=== PATIENT | female | born 1960 | race Caucasian/White ===

== ENCOUNTER 2022-09-19 09:26 | Outpatient (CLI) | payer BC, SELFPAY | END 2022-09-19 09:27 | disposition home or self-care (01) | LOC: INJ CL 09:27 | PROVIDERS: PCP Physician Assistant; Visit Provider Family Medicine | DX: M25.551 Pain in right hip (principal); M16.11 Unilateral primary osteoarthritis, right hip | CPT/HCPCS: 20610; 77002; J0702; Q9966 ==

== ENCOUNTER 2022-12-25 07:19 | Outpatient (RCR) | payer BC, SELFPAY | END 2023-03-09 11:00 | disposition home or self-care (01) | PROVIDERS: PCP Physician Assistant; Visit Provider Orthopaedic Surgery | DX: M16.11 Unilateral primary osteoarthritis, right hip (principal); Z96.641 Presence of right artificial hip joint; M25.651 Stiffness of right hip, not elsewhere classified; M25.551 Pain in right hip; R26.89 Other abnormalities of gait and mobility; Z74.09 Other reduced mobility; Z51.89 Encounter for other specified aftercare | CPT/HCPCS: 97161 ==

== ENCOUNTER 2023-01-07 11:54 | Outpatient (CLI) | payer BC, SELFPAY | END 2023-01-07 11:55 | disposition home or self-care (01) | PROVIDERS: PCP Physician Assistant; Visit Provider Emergency Medicine | DX: Z01.83 Encounter for blood typing (principal) | CPT/HCPCS: 36415; 86850; 86900; 86901 ==

== ENCOUNTER 2023-01-09 06:02 | Day surgery (SDC) | payer BC, SELFPAY ==
[2023-01-09] VITALS (25 sets, daily range): BP systolic 104–163; BP diastolic 53–92; PULSE 71–96; RESP 14–18; TEMP 36.4–37; O2SAT 90–100; BMI 40.7
[2023-01-09] MEDS: LACTATED RINGERS 1000 ML 1,000 ML 100 ML IV ×2 (06:30→09:21)
[2023-01-09] MEDS: CELECOXIB 200 MG CAPSULE PO (06:51)
[2023-01-09] MEDS: ACETAMINOPHEN 500 MG TABLET 1000 MG PO ×3 (06:51→17:15)
[2023-01-09] MEDS: SODIUM CHLORIDE 0.9 % (FLUSH) 10 ML SYRINGE IVF (06:52)
[2023-01-09] MEDS: OXYCODONE (CR) 10 MG TAB.ER.12H PO (06:52)
--- NOTE | 2023-01-09 07:06 | SUR.PREOP ---
TIME?OUT:?0714 PT/RN/MDA?VERIFICATION?OF?SURGICAL?SITE Right Hip,?PROCEDURE Nerve Block,?AND?CONSENT OBTAINED?PRIOR?TO?INVASIVE?PROCEDURE.
[2023-01-09] MEDS: MIDAZOLAM HCL 1 MG/ML inj IVP (07:14)
[2023-01-09] MEDS: fentaNYL 100 MCG/2 ML inj IVP (07:14)
[2023-01-09] MEDS: CEFAZOLIN 2 GM INJ IVP (07:45)
--- NOTE | 2023-01-09 07:45 | CRLHL7_ITS ---
For Patients: As a result of the Cures Act, medical imaging exams and procedure reports are released immediately into your electronic medical record. You may view this report before your referring provider. If you have questions, please contact your health care provider. Indication: Hip replacement surgery Technique: AP hip fluoroscopic images. Fluoroscopy time 65.2 seconds. Findings/Impression: Hardware from a right total hip arthroplasty is in satisfactory position. Dictated by Carl Turner MD @ 01/09/2023 1:26:05 PM (Electronically Signed)
[2023-01-09] MEDS: TRANEXAMIC ACID 100 MG/ML INJ 1000 MG IV (07:50)
--- NOTE | 2023-01-09 08:18 | W.ANESCHARGE ---
Anesthesia Charges Start Date/Time Anesthesia Start Date: 01/09/23 Anesthesia Start Time: 07:37 Stop Date/Time Anesthesia Stop Date: 01/09/23 Anesthesia Stop Time: 10:20
--- NOTE | 2023-01-09 09:07 | W.PM.NB ---
Nerve Block Nerve Block Time Seen by Provider: 07:18 Date Seen: 01/09/23 Type of block requested by surgeon for post-operative analgesia: RUPERT/LFCN Side: right Time out performed: Yes Verification of patient name: Yes Verification of date of : Yes Site marking: site marked Name of person performing procedure: Justin Continuous monitoring Was continuous monitoring of O2 sat, B/P, cardiac cath lab radiology technologist, recorded every 15 minutes?: Yes Procedure Checklist: sterile prep, needles and gloves Ultrasound guided. Images saved: Yes Medications given in 5ml increments after negative aspiration: Ropivicaine %: 0.5 mL: 30 Needle gauge: 20 Decadron (mg): 10 Precedex (mcg): 25 Patient tolerated procedure well: Yes Additional comments: Needle noted below psoas tendon needle noted adjacent to LFCN Block Charges Block Charge (with Pro Fee): Other Periph Nerve Block Use of Ultrasound Machine for Block: Yes- US Guidance/pain block
--- NOTE | 2023-01-09 09:07 | W.ANESCHARGE ---
Anesthesia Charges Start Date/Time Anesthesia Start Date: 01/09/23 Anesthesia Start Time: 07:37 Stop Date/Time Anesthesia Stop Date: 01/09/23 Anesthesia Stop Time: 10:20
--- NOTE | 2023-01-09 09:29 | CRLHL7_ITS ---
For Patients: As a result of the Cures Act, medical imaging exams and procedure reports are released immediately into your electronic medical record. You may view this report before your referring provider. If you have questions, please contact your health care provider. Indication: Postop DAVE Technique: AP hip centered pelvis and lateral view right hip Findings/Impression: Hardware from a right total hip arthroplasty is in satisfactory position. Bone alignment is normal. No sign of acute fracture. Postop changes are within normal limits. Dictated by Carl Turner MD @ 01/09/2023 1:21:04 PM (Electronically Signed)
--- NOTE | 2023-01-09 09:30 | PM.ORPRC ---
Procedure Note Date of procedure: 01/09/23 Procedure: PREOPERATIVE DIAGNOSIS: Right hip osteoarthritis POSTOPERATIVE DIAGNOSIS: Right hip osteoarthritis NAME OF OPERATION: Right total hip arthroplasty SURGEON: Lonnie Chery MD BEE RANCHER: Selina Calderon PA-C, MICHELLE Calvillo IMPLANTS: 1. [employer] [place] # 52 sector ingrowth cup 2. 36 x 52 +4 neutral polyethylene 3. Actis # 5 high offset collared ingrowth stem 4. 36 + 1.5 ceramic femoral head ANESTHESIA: General ESTIMATED BLOOD LOSS: 600 cc COMPLICATIONS: None SPECIMENS: None DRAINS: None PREOPERATIVE ANTIBIOTICS: Ancef 2 grams INDICATIONS: The patient is a 62-year-old with a longstanding history of severe, unrelenting right hip pain secondary to end-stage right hip osteoarthritis. Despite appropriate nonoperative management, including activity modification, use of an assist device, anti-inflammatories, [id number] pain medication, physical therapy and injections, they continue to have pain and disability. Operative intervention was offered. The risks, benefits and expected outcomes were discussed in detail. These included but were not limited to: Infection, bleeding, injury to blood vessel or nerve, venous thromboembolism. All questions were answered to their satisfaction. Use of an customer service assistant was necessary throughout the case for patient positioning and safety, soft tissue retraction and closure. A modifier 22 should be added to this case. The patient's weight of 111 kg with a BMI of 40.8 kg/meter squared made the exposure difficult. This added significant time to complete the case. PROCEDURE: The patient was placed supine on the Hutchins table. General anesthesia was administered. The customer service assistant made sure the patient was properly positioned. The right hip was prepped and draped in the usual sterile fashion. The image intensifier was brought in for a perfect AP pelvis and a perfect double tear drop AP view of each hip which were used for intraoperative templating with our fluoroscopic guide. An oblique incision was made 3 cm distal and 3 cm lateral to the anterior superior iliac spine. The customer service assistant retracted the soft tissues to protect them. Subcutaneous dissection was taken with electrocautery to the superficial fascia. The fascia was divided in line with the incision. Blunt dissection was carried medially to the tensor fascia estefania and sartorius interval. Deep dissection was carried with electrocautery. The circumflex vessels were cauterized and divided. The capsule was exposed and then divided in a T-fashion, tagged with #1 Ethibond sutures. Retractors were placed in the joint, held by the customer service assistant. The corkscrew was placed in the femoral head. The neck cut was made in the subcapital region. We made a second neck cut more distal. The napkin ring of bone was removed. The femoral head was removed intact. Acetabular retractors were placed, held by the customer service assistant. The labrum was sharply debrided. The capsule was released. The 43 mm reamer was used to the true medial wall. We then enlarged in 2 mm increments using the image intensifier for our reamer placement. We impacted the cup which had excellent purchase. We placed the hole eliminator and the polyethylene. Attention was then turned to the proximal femur. The limb was placed in 140 degrees of external rotation, maximum extension and adduction. A significant amount of time was spent releasing the capsule to allow us to deliver the femur into the wound and complete the femoral side safely. Retractors were held by the customer service assistant throughout the femoral preparation. The slip box changer and canal finder were used. Broaches were used to a stable size. The calcar reamer was used. Trial components were placed. The hip was reduced and was found to be stable with appropriate soft tissue tension. Length and offset had been nicely restored using the image intensifier and our fluoroscopic guide. Trial components were removed. The stem was impacted. We placed the femoral head. Again, the hip was reduced and was found to be stable with appropriate soft tissue tension. Length and offset had been nicely restored. The customer service assistant did a three minute dilute Betadine solution soak. The customer service assistant irrigated the wound with 3 liters of normal saline via pulse lavage. The customer service assistant repaired the anterior capsule with a #1 Vicryl and our previously placed Ethibond sutures. The customer service assistant closed the fascia over the tensor fascia estefania with a #1 PDO Stratafix, subcutaneous tissues with 2-0 Vicryl, skin with a running 3-0 Stratafix and glue. A dry dressing was applied by the customer service assistant. Sponge and needle counts were correct x 2. The patient tolerated the procedure well; there were no apparent complications. They were awakened and extubated in the operating room, sent to the Post-Anesthesia Care Unit in satisfactory condition. PLAN: 1. The patient will be mobilized with physical therapy, weight-bearing as tolerates 2. Xarelto x 35 days will be used for DVT prophylaxis 3. The patient will be discharged once medically appropriate
[2023-01-09] MEDS: HYDROmorphone 0.5 mg/0.5 ml inj IVP (10:45)
[2023-01-09] MEDS: LACTATED RINGERS 1000 ML 1,000 ML 75 ML IV (11:19)
[2023-01-09] MEDS: OXYCODONE 5 MG TABLET PO ×2 (12:52→21:21)
[2023-01-09] MEDS: CEFAZOLIN 2 GM in 0.9 % SODIUM CHLORIDE Mini-bag 100 ML IVPB ×2 (15:49→23:05)
--- NOTE | 2023-01-09 16:09 | PC.NURSE ---
Shift Summary :Patient pleasant and cooperative, up with PT to chair one assist, walker and gait belt. Tolerating regular diet, pain managed with PRN medication. Dressing over hip clean, dry and intact. Vitals stable and WNL, ow sat >90% on RA. Ice pack over right hip. Patient alert and oriented, using call light appropriately.
--- NOTE | 2023-01-09 16:37 | P.IMCN_ITS ---
Date of Consult Patient: Raquel Patient Consult date: 01/09/23 Requesting Physician: Orthopedics Primary Care Provider: ZEN Saini-Josselyn Consult Narrative Reason for consult: Postoperative care HTN, peripheral neuropathy, anxiety/depression Narrative: Rebecca Clark is a 62 year old woman with end-stage right Carlin arthrosis undergoes elective right total hip arthroplasty today with Dr. Lonnie Chery, [facility], [place], [place], with estimated blood loss of 600 mL. No apparent rika or postoperative complications. Doing well. Pain well c ontrolled at this time. Review of Systems Status of ROS: Reports: 10 or more systems reviewed and unremarkable except as noted in History and below Narrative: I reviewed the preoperative consultation she had with her primary care aide, ZEN Patton, dated 12/26/2022. Patient was deemed low risk for perioperative complications. History of bilateral lower extremity varicose veins for which she had vein stripping roughly 8-10 years ago. Did develop postoperative deep venous thrombosis of the left femoral vein at that time for which she was treated with anticoagulation appropriately. Has had multiple surgeries prior to and since that time including knee bilateral total knee replacements in 2004, revision of the right total knee replacement in September of 2021, without deep venous thrombosis or other complications. Denies angina, anginal equivalent, syncope, near syncope, nausea, vomiting, cough, dyspnea, edema, palpitations. Does not have a history of asthma or COPD. Does have a history of reactive airways disease which occasionally occurs in the fall of the year. Does not take bronchodilators or beta agonists for her respiratory status except for rarely, as needed, per her clinician oncology. 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 Over the past couple years the right hip pain has become gradually increasingly apparent. Is gradually becoming increasingly more difficult for her to bear weight, transfer, walk. [facility] Medical History (Updated 01/09/23 @ 17:00 by Taco Orona MD) Controlled substance agreement signed ?Z79.899 - Other care home (current) drug therapy (ICD-10) Left femoral vein DVT ?I82.412 - Acute embolism and thrombosis of left femoral vein (ICD-10) GERD (gastroesophageal reflux disease) ?K21.9 - Gastro-esophageal reflux disease without esophagitis (ICD-10) Generalized anxiety disorder ?F41.1 - Generalized anxiety disorder (ICD-10) Major depressive disorder, recurrent episode ?F33.9 - Major depressive disorder, recurrent, unspecified (ICD-10) HTN (hypertension) ?I10 - Essential (primary) hypertension (ICD-10) DVT (deep venous thrombosis) ?I82.409 - Acute embolism and thrombosis of unspecified deep veins of unspecified lower extremity (ICD-10) Right knee pain ?M25.561 - Pain in right knee (ICD-10) Surgical History History of total knee arthroplasty ?Z96.659 - Presence of unspecified artificial knee joint (ICD-10) History of revision of total knee arthroplasty ?Z96.659 - Presence of unspecified artificial knee joint (ICD-10) S/P KIANNA (total abdominal hysterectomy) ?Z90.710 - Acquired absence of both cervix and uterus (ICD-10) History of revision of total replacement of right knee joint (10/03/21) ?Z96.651 - Presence of right artificial knee joint (ICD-10) S/P right knee arthroscopy (05/09/05) ?Z98.890 - Other specified postprocedural states (ICD-10) H/O vein stripping ?Z98.890 - Other specified postprocedural states (ICD-10) H/O: hysterectomy ?Z90.710 - Acquired absence of both cervix and uterus (ICD-10) Status post total bilateral knee replacement (~2006) ?Z96.653 - Presence of artificial knee joint, bilateral (ICD-10) Family History Mother Lung cancer Father Anxiety disorder COPD (chronic obstructive pulmonary disease) Sister Breast cancer Social History Narrative: -Dereje What is your current living situation?: I presently have a place to live In the past 12 months, utilities in danger of being shut off: no In past 12 months, lack of transportation kept you from medical appts, meetings, work, or getting things needed for daily living: no In the past 12 mos, have been you worried that your food would run out before you had money to buy more?: never true In the past 12 mos, the food you bought just didn't last and you didn't have money to buy more?: never true Smoking Status: Never smoker Do you use any of these nicotine containing products: None Second hand tobacco smoke exposure: No How often do you have a drink containing alcohol: never AUDIT-C Alcohol total score: 0 Non-prescribed substance use: denies use Caffeine: No How often does anyone, including family, friends and others, physically hurt you : never How often does anyone, including family, friends and others, insult or talk down to you: never How often does anyone, including family, friends and others, threaten you with harm: never How often does anyone, including family, friends and others, scream or curse at you: never Meds Home Medications and Allergies Home Medications Medication Instructions Recorded Confirmed Type bupropion HCl 150 mg 24 hr tablet, 150 mg PO QAM 10/04/22 01/09/23 History extended release buspirone 15 mg tablet 15 mg PO TID 10/04/22 01/09/23 History celecoxib 200 mg capsule 200 mg PO BID 10/04/22 01/09/23 History clindamycin HCl 150 mg capsule 600 mg PO ONCE PRN 10/04/22 01/09/23 History escitalopram oxalate 20 mg tablet 20 mg PO DAILY 10/04/22 01/09/23 History famotidine 40 mg tablet 40 mg PO DAILY 10/04/22 01/09/23 History fluticasone 250 mcg-salmeterol 50 1 inh inhalation BID 10/04/22 01/09/23 History mcg/dose blistr powdr for inhalation (Advair Diskus) fluticasone propionate 50 2 spray intranasal DAILY 10/04/22 01/09/23 History mcg/actuation nasal spray,suspension lisinopril 20 1 tab PO DAILY 10/04/22 01/09/23 History mg-hydrochlorothiazide 25 mg tablet potassium chloride 20 mEq 20 meq PO DAILY 10/04/22 01/09/23 History tablet,extended release(part/cryst) pregabalin 100 mg capsule 100 mg PO BID 10/04/22 01/09/23 History triamcinolone acetonide 0.1 % 1 applic topical BID PRN 10/04/22 01/09/23 History topical ointment albuterol sulfate 90 mcg/actuation 2 inh inhalation Q6H PRN 01/09/23 01/09/23 History aerosol inhaler multivitamin (Daily Multi-Vitamin 1 tab PO DAILY 01/09/23 01/09/23 History tablet) Allergies Allergy/AdvReac Type Severity Reaction Status Date / Time Penicillins AdvReac Hives Verified 01/09/23 06:35 topiramate AdvReac itching Verified 01/09/23 06:35 Exam Narrative: Exam Narrative: Examined patient in her hospital room. Appears comfortable in no acute distress. Vision and hearing are grossly normal. Alert and oriented to self, place, time, situation. Friendly, articulate, cooperative. Hoarse voice status post general anesthesia. Pupils equally round and reactive to light and accommodation, extraocular muscles are intact, conjugate vision. No icterus or conjunctival injection. Midline nasal septum. Dentition in good repair. Midline trachea. Neck is supple. No head or neck lymphadenopathy. Lungs are clear to auscultation without wheezing, rhonchi, or rales. Chest wall excursions are full with respiratory efforts. Heart tones with regular rhythm, normal S1-S2, without murmur, gallop, or rub. PMI not laterally displaced. No focal motor neurologic deficits. As already been able to move about the room with help from physical therapy. Const: Vital Signs, click to edit/add: Vital Signs - 24 hr 01/09/23 06:39 01/09/23 07:14 01/09/23 07:20 Temperature 97.8 F Pulse Rate 73 72 71 Pulse Rate [Pulse Oximeter] Respiratory Rate 16 16 16 Blood Pressure 126/61 125/53 L 109/58 L Blood Pressure [Le ft Arm] Pulse Oximetry 96 100 100 Oxygen Delivery Me thod Room Air Nasal Cannula Nasal Cannula Oxygen Flow Rate 2 2 01/09/23 10:19 01/09/23 10:25 01/09/23 10:30 Temperature 97.7 F Pulse Rate 75 76 77 Pulse Rate [Pulse Oximeter] Respiratory Rate 16 14 16 Blood Pressure 158/78 H 146/83 H 140/92 H Blood Pressure [Le ft Arm] Pulse Oximetry 96 95 95 Oxygen Delivery Me thod Room Air Oxygen Flow Rate 01/09/23 10:35 01/09/23 10:40 01/09/23 10:45 Temperature 97.8 F Pulse Rate 77 81 81 Pulse Rate [Pulse Oximeter] Respiratory Rate 14 16 16 Blood Pressure 163/87 H 156/89 H 144/78 H Blood Pressure [Le ft Arm] Pulse Oximetry 94 93 94 Oxygen Delivery Me thod Room Air Oxygen Flow Rate 01/09/23 10:50 01/09/23 10:55 01/09/23 11:00 Temperature Pulse Rate 76 80 79 Pulse Rate [Pulse Oximeter] Respiratory Rate 16 16 16 Blood Pressure 139/78 140/77 H 135/77 Blood Pressure [Le ft Arm] Pulse Oximetry 97 97 97 Oxygen Delivery Me thod Room Air Room Air Room Air Oxygen Flow Rate 01/09/23 11:14 01/09/23 11:30 01/09/23 11:45 Temperature 97.5 F L 97.5 F L 97.7 F Pulse Rate 74 Pulse Rate [Pulse Oximeter] 80 83 Respiratory Rate 16 16 16 Blood Pressure Blood Pressure [Le ft Arm] 138/79 140/82 H 133/64 Pulse Oximetry 93 94 Oxygen Delivery Me thod Room Air Room Air Room Air Oxygen Flow Rate 01/09/23 12:00 01/09/23 12:30 01/09/23 13:00 Temperature 97.7 F 97.6 F 97.6 F Pulse Rate Pulse Rate [Pulse Oximeter] 76 93 91 Respiratory Rate 18 16 16 Blood Pressure Blood Pressure [Le ft Arm] 137/79 114/89 114/66 Pulse Oximetry 95 96 94 Oxygen Delivery Me thod Room Air Room Air Room Air Oxygen Flow Rate 01/09/23 13:30 01/09/23 14:00 01/09/23 15:00 Temperature 97.7 F Pulse Rate Pulse Rate [Pulse Oximeter] 88 85 91 Respiratory Rate 18 18 18 Blood Pressure Blood Pressure [Le ft Arm] 104/64 121/81 Pulse Oximetry 95 96 Oxygen Delivery Me thod Room Air Room Air Oxygen Flow Rate 01/09/23 15:00 01/09/23 16:00 Temperature 98.4 F Pulse Rate Pulse Rate [Pulse Oximeter] 91 89 Respiratory Rate 18 18 Blood Pressure Blood Pressure [Le ft Arm] 124/78 144/78 H Pulse Oximetry 97 96 Oxygen Delivery Me thod Room Air Room Air Oxygen Flow Rate Assessment and Plan Assessment and plan (1) Osteoarthritis of right hip: Status: Acute (2) Status post right hip replacement: Status: Acute (3) HTN (hypertension): Status: Acute (4) DVT (deep venous thrombosis): Problem comment: Left femoral vein status post vein stripping roughly 8-10 years ago (today's date is 01/09/2023) Status: Acute (5) Generalized anxiety disorder: Status: Acute (6) Major depressive disorder, recurrent episode: Status: Acute Plan 1. Reviewed impression with patient 2. Continue with supportive medical efforts 3. Agree with perioperative antibiotic prophylaxis 4. Agree with postoperative venous thromboembolism prophylaxis 5. Completed hospitalists portion of discharge section of her medical records
[2023-01-09] MEDS: BUSPIRONE 10 MG TABLET 15 MG PO (21:21)
[2023-01-09] MEDS: PREGABALIN 100 MG CAPSULE PO (21:21)
[2023-01-09] MEDS: SENNOSIDES 1 TAB TABLET 2 TAB PO (21:21)
--- NOTE | 2023-01-09 23:29 | PC.NURSE ---
Shift Note: Pt friendly and cooperative. VS WNL and LS COA. Rates pain 3/10. Surgical dressing C,D,&I, small area of erythema on proximal corner. Active ice in place. Pt moves well with assist x1 with GB and walker. Tolerating a regular diet without difficulty. Plans to discharge home with her tomorrow.
[2023-01-10] MEDS: ACETAMINOPHEN 500 MG TABLET 1000 MG PO ×2 (04:03→10:09)
--- NOTE | 2023-01-10 04:44 | PC.NURSE ---
END OF SHIFT NOTE: PT PLEASANT AND COOPERATIVE. A&Ox3. DENIES CP, SOB, N/V. AMBULATES WITH WALKER, GB, SBA. VSS ON RA; AFEBRILE. INCISION TO RIGHT HIP C/D/I WITH ACTIVE ICE IN PLACE. CALL LIGHT WITHIN PT?S REACH.?
[2023-01-10 06:54] LABS: Hematocrit 32.4 % (33.0-51.0); Hemoglobin* 10.5 gm/dL (12.0-16.0); Immature Granulocytes Abs Auto 0.01 K/uL (0.00-0.30); Immature Granulocytes Pct Auto 0.1 %; Lymphocytes Percent Auto 10.8 % (20-44); Mean Corpuscular HGB Conc 32 gm/dL (32-36); Mean Corpuscular Hemoglobin 29 pg (26-34); Mean Corpuscular Volume 90 fL (80-100); Monocytes Percent Auto 13.2 % (0.0-11.0); Neutrophils Percent Auto 75.9 % (42.0-72.0); Platelet Count* 228 K/uL (140-440); RDW Coefficient of Variation % 13.5 % (11.5-15.5); White Blood Count* 9.55 K/uL (4.50-11.00)
[2023-01-10 07:00] VITALS: BP 150/82; PULSE 80; RESP 18; TEMP 37.2; O2SAT 98
[2023-01-10 07:11] LABS: Sodium* 136 mmol/L (135-149)
[2023-01-10 07:12] LABS: Potassium* 3.9 mmol/L (3.6-5.1); Slide Review Reflex No
[2023-01-10 07:14] LABS: Creatinine* 0.5 mg/dL (0.5-1.5); Est. Creatinine Clearance* 107.67; Estimated Glomerular Filt Rate 107 ml/min
[2023-01-10 07:15] LABS: Blood Urea Nitrogen* 17 mg/dL (7-30)
--- NOTE | 2023-01-10 08:09 | PM.ORPN ---
Subjective Subjective Time Seen by Provider: 07:40 Date Seen: 01/10/23 Principal diagnosis: Status post right hip replacement Interval history: The patient is comfortable this morning. She denies nausea, vomiting. She plans to discharge today to home. Ortho Exam Narrative Exam Narrative: Alert and oriented x3. Patient is in no acute distress. Converses without labored breathing. Hearing is grossly intact. Ambulates with a walker. Examination of the right hip shows the dressing is intact. There is no erythema or warmth or sign of infection. Nontender over the thigh. Very minimal soft tissue edema. CMS is intact right lower extremity. Bilateral calves are soft and nontender. Quad strength 5/5. Const Vital Signs, click to edit/add: Vital Signs - 24 hr 01/09/23 10:19 01/09/23 10:25 01/09/23 10:30 Temperature 97.7 F Pulse Rate 75 76 77 Pulse Rate [Pulse Oximeter] Respiratory Rate 16 14 16 Blood Pressure 158/78 H 146/83 H 140/92 H Blood Pressure [Left Arm] Pulse Oximetry 96 95 95 Oxygen Delivery Method Room Air 01/09/23 10:35 01/09/23 10:40 01/09/23 10:45 Temperature 97.8 F Pulse Rate 77 81 81 Pulse Rate [Pulse Oximeter] Respiratory Rate 14 16 16 Blood Pressure 163/87 H 156/89 H 144/78 H Blood Pressure [Left Arm] Pulse Oximetry 94 93 94 Oxygen Delivery Method Room Air 01/09/23 10:50 01/09/23 10:55 01/09/23 11:00 Temperature Pulse Rate 76 80 79 Pulse Rate [Pulse Oximeter] Respiratory Rate 16 16 16 Blood Pressure 139/78 140/77 H 135/77 Blood Pressure [Left Arm] Pulse Oximetry 97 97 97 Oxygen Delivery Method Room Air Room Air Room Air 01/09/23 11:14 01/09/23 11:30 01/09/23 11:45 Temperature 97.5 F L 97.5 F L 97.7 F Pulse Rate 74 Pulse Rate [Pulse Oximeter] 80 83 Respiratory Rate 16 16 16 Blood Pressure Blood Pressure [Left Arm] 138/79 140/82 H 133/64 Pulse Oximetry 93 94 Oxygen Delivery Method Room Air Room Air Room Air 01/09/23 12:00 01/09/23 12:30 01/09/23 13:00 Temperature 97.7 F 97.6 F 97.6 F Pulse Rate Pulse Rate [Pulse Oximeter] 76 93 91 Respiratory Rate 18 16 16 Blood Pressure Blood Pressure [Left Arm] 137/79 114/89 114/66 Pulse Oximetry 95 96 94 Oxygen Delivery Method Room Air Room Air Room Air 01/09/23 13:30 01/09/23 14:00 01/09/23 15:00 Temperature 97.7 F Pulse Rate Pulse Rate [Pulse Oximeter] 88 85 91 Respiratory Rate 18 18 18 Blood Pressure Blood Pressure [Left Arm] 104/64 121/81 Pulse Oximetry 95 96 Oxygen Delivery Method Room Air Room Air 01/09/23 15:00 01/09/23 16:00 01/09/23 17:30 Temperature 98.4 F 97.7 F Pulse Rate Pulse Rate [Pulse Oximeter] 91 89 93 Respiratory Rate 18 18 18 Blood Pressure Blood Pressure [Left Arm] 124/78 144/78 H 120/71 Pulse Oximetry 97 96 96 Oxygen Delivery Method Room Air Room Air Room Air 01/09/23 19:00 01/10/23 07:00 Temperature 98.6 F 98.9 F Pulse Rate Pulse Rate [Pulse Oximeter] 90 80 Respiratory Rate 16 18 Blood Pressure Blood Pressure [Left Arm] 114/71 150/82 H Pulse Oximetry 93 98 Oxygen Delivery Method Room Air Room Air Assessment and Plan Assessment and plan (1) Status post right hip replacement: Problem details: 01/09/2023 Status: Acute Assessment and Plan: Plan for discharge is today to home if they meet discharge criteria. DVT prophylaxis includes Xarelto 10 mg daily for total of 35 days, Rafi stockings x1 month may remove for 1 hr per day, frequent ambulation Remove dressing 1 week. Observe wound and phone Orthopedics with any questions or concerns Use Ice on operative hip unrestricted. Return to clinic in 1 week with PA for a wound check Return to clinic in 6 weeks with surgeon Minimize narcotic use. Wean off and discontinue soon as possible. Activities as tolerated. No strenuous activity. Attend outpt PT
[2023-01-10 08:15] VITALS: PULSE 84; RESP 18
[2023-01-10] MEDS: buPROPion XL 150 MG TABLET PO (08:44)
[2023-01-10] MEDS: ESCITALOPRAM 10 MG TABLET 20 MG PO (08:45)
[2023-01-10] MEDS: BUSPIRONE 10 MG TABLET 15 MG PO (08:45)
[2023-01-10] MEDS: FAMOTIDINE 20 MG TABLET 40 MG PO (08:45)
[2023-01-10] MEDS: POTASSIUM CHLORIDE 10 MEQ CAPSULE ER 20 MEQ PO (08:46)
[2023-01-10] MEDS: lisinopriL 20 MG TABLET PO (08:46)
[2023-01-10] MEDS: SENNOSIDES 1 TAB TABLET 2 TAB PO (08:46)
[2023-01-10] MEDS: hydroCHLOROthiazide 25 MG TABLET PO (08:46)
[2023-01-10] MEDS: PREGABALIN 100 MG CAPSULE PO (08:46)
[2023-01-10] MEDS: RIVAROXABAN 10 MG TABLET PO (08:46)
[2023-01-10] MEDS: OXYCODONE 5 MG TABLET PO (08:47)
--- NOTE | 2023-01-10 13:20 | PC.NURSE ---
VSS AND AFEBRILE. LS CLEAR AND BS ACTIVE. DRESSING TO RIGHT HIP CDI. PAIN CONTROLLED WITH SCHEDULED TYLENOL AND PRN OXYCODONE. UP WITH A1, WALKER AND GAIT BELT AND TOLERATING ACTIVITY WELL. TOLERATING REGULAR DIET WITH NO C/O N/V. SALINE LOCK DC'D. REVIEWED DC INSTRUCTIONS WITH PATIENT AND SPOUSE AND BOTH DENIED QUESTIONS. DC'D HOME VIA AND SENT WITH 2 ACTIVE ICE PACKS.
== END 2023-01-10 11:00 | disposition home or self-care (01) ==
LOC: OR 06:04 → MEDSURG 06:06
PROVIDERS: PCP Physician Assistant; Visit Provider Orthopaedic Surgery
PROC: (CPT 27130; principal; 2023-01-09 07:45)
DX: M16.11 Unilateral primary osteoarthritis, right hip (principal); G89.18 Other acute postprocedural pain; I10 Essential (primary) hypertension; G62.9 Polyneuropathy, unspecified; F41.1 Generalized anxiety disorder; F33.9 Major depressive disorder, recurrent, unspecified
CPT/HCPCS: 27130; 01214; 36415; 64450; 73501; 76000; 76942; 82565; 84132; 84295; 84520; 85025; 97110; 97116; 97161; 97165; 97530; 97535; A9270; C1776; J0330; J0690; J1100; J1170; J2250; J2405; J2704; J2710; J2795; J3010; J7120